=== PATIENT | female | born 1995 | race African-American/Black ===

== ENCOUNTER 2016-12-24 15:23 | Emergency (ER) | payer MEDICAID ==
[~2016-12-24] VITALS: Ht 175.3 cm; Wt 100.0 kg
[~2016-12-24 15:23] MED LIST: ETON1IMP I-DERMAL
[2016-12-24 15:24] VITALS: BP 110/63; PULSE 112; TEMP 98.8; O2SAT 97
[2016-12-24] MEDS ORDERED: LIDOCAINE 1%/EPINEPHrine 1:100,000 SOLN 20 ML VIAL INFIL ONE (15:45)
--- NOTE | 2016-12-24 15:45 | PD ---
HPI Chief Complaint: Lump, Cyst, Hernia Time Seen by Provider: 15:44 Travel History International Travel<30 days: No Contact w/Intl Traveler<30days: No Traveled to known affect area: No History of Present Illness HPI 21-year-old female presents to the emergency department complaining of an abscess in between her buttocks 2-3 days. Denies fever, vomiting. Reports nausea. Has not taken any medications or tried any treatments to be her symptoms. No known allergies. Has history of multiple abscesses. Has no medical complaints. No other modifying factors or associated signs and symptoms. PFSH Past Medical History Cancer: No Cardiovascular Problems: No Diminished Hearing: No Endocrine: No Genitourinary: No Immune Disorder: No Musculoskeletal: No Neurologic: No Psychiatric: No Reproductive: No Respiratory: No Immunizations Current: Yes ?: Not LMP: 2014 : 0 Para: 0 Miscarriage: 0 : 0 Social History Alcohol Use: No Tobacco Use: No Substance Use: No Allergies-Medications (Allergen,Severity, Reaction): Coded Allergies: No Known Allergies (Verified , 06/21/16) Reported Meds & Prescriptions Reported Meds & Active Scripts Active Ibuprofen 800 Mg Tab 800 Mg PO Q6HR PRN Keflex (Cephalexin) 500 Mg Cap 500 Mg PO Q6H 10 Days Bactrim DS (Sulfamethoxazole-Trimethoprim) 800-160 Mg Tab 1 Tab PO BID 10 Days Nexplanon Implant (Etonogestrel Implant) 68 Mg Imp 68 Mg I-DERMAL ONCE Review of Systems Except as stated in HPI: all other systems reviewed are Neg Physical Exam Narrative GENERAL: Well-nourished, well-developed female patient, in no acute distress; afebrile, nontoxic-appearing SKIN: There is an indurated area to the coccyx area which measures about 3 cm in diameter. It is fluctuant but there is no pointing or drainage. There is a zone of inflammation around it but no lymphangitis. HEAD: Atraumatic. Normocephalic. EYES: Pupils equal and round. No scleral icterus. No injection or drainage. ENT: Mucosa pink and moist. Airway patent. NECK: Trachea midline. CARDIOVASCULAR: Regular rate. RESPIRATORY: No accessory muscle use. GASTROINTESTINAL: Obese. MUSCULOSKELETAL: No obvious deformities. No clubbing. No cyanosis. No edema. NEUROLOGICAL: Awake and alert. Oriented 3. No obvious cranial nerve deficits. Motor grossly within normal limits. Normal speech. PSYCHIATRIC: Appropriate mood and affect; insight and judgment normal. Data Data Last Documented VS Vital Signs Date Time Temp Pulse Resp B/P Pulse Ox O2 Delivery O2 Flow Rate FiO2 12/24/16 15:24 98.8 112 110/63 97 Orders Lidocai-Epi 1%-1:100,000 Inj (Xylocaine- (12/24/16 15:45) Wound Culture And Gram Stain (12/24/16 15:46) Ondansetron Odt (Zofran Odt) (12/24/16 16:00) Ketorolac Inj (Toradol Inj) (12/24/16 16:00) [facility] Medical Decision Making Medical Screen Exam Complete: Yes Emergency Medical Condition: Yes Medical Record Reviewed: Yes Differential Diagnosis Pilonidal abscess, perirectal abscess, abscess of buttocks Narrative Course 21-year-old female physical exam consistent with pilonidal abscess. See my procedure note for incision and drainage. Patient is afebrile and nontoxic- appearing. She is reporting nausea without vomiting. Zofran and Toradol administered in the ER. Heart rate recheck approximately 90-100 bpm. Keflex and Bactrim prescribed for home. Instructed patient to follow up with primary care provider or return to the emergency department in 48 hours for packing removal. Patient verbalizes understanding and agreement with treatment plan. Patient is medically cleared and stable for discharge. Discussed reasons to return to the emergency department. Instructed patient to follow up with primary care provider. Patient agrees with treatment plan. The patients vital signs are stable and the patient is stable for outpatient follow-up and treatment. Patient discharged home, stable and in no acute distress. Procedures Procedure Narrative INCISION AND DRAINAGE OF ABSCESS: The area was prepped and was sterilely draped. A subcutaneous wheal of 1 % Xylocaine with a total number 2 mL was used to anesthetize the area properly. A number 11 scalpel was used to make a 1 -cm incision across the area of the abscess. The abscess was drained, complex loculations were broken down, and irrigated with normal saline. Cultures were obtained. Quarter inch iodoform packing was placed in the wound. Sterile dressing applied. Patient advised to have packing removed in two days. Diagnosis Primary Impression: Pilonidal abscess Referrals: Primary Care Physician Patient Instructions: Abscess (ED), Abscess Follow-up (ED), Abscess Incision and Drainage (ED), General Instructions Departure Forms: Tests/Procedures, Work Release Enter return to work date: Dec 27, 2016 Additional Instructions: Complete full course of antibiotics Warm compresses to the affected area Keep area clean and dry Ibuprofen or Tylenol as directed and as needed for pain and inflammation Return to the emergency department in 48 hours (Sunday12/26/2016) for abscess packing removal Follow-up with primary care provider Return to emergency department immediately with worsening of symptoms Med/Other Pt SpecificInfo: Prescription(s) given Scripts Ibuprofen 800 Mg [id number] Mg PO Q6HR PRN (PAIN) #30 TAB Ref 0 Prov:Esme Covarrubias 12/24/16 Cephalexin (Keflex)500 Mg [id number] Mg PO Q6H 10 Days Ref 0 Prov:Esme Covarrubias 12/24/16 Sulfamethoxazole-Trimethoprim (Bactrim DS)800-160 Mg Tab1 Tab PO BID 10 Days Ref 0 Prov:Esme Covarrubias 12/24/16 Disposition: 01 DISCHARGE HOME Condition: Stable Esme Covarrubias Dec 24, 2016 15:45
[2016-12-24] MEDS ORDERED: IBUP800T23 PO (15:48)
[2016-12-24] MEDS ORDERED: BACT800T5 PO (15:48)
[2016-12-24] MEDS ORDERED: CEPH-460 PO (15:48)
[2016-12-24] MEDS ORDERED: KETOROLAC TROMETHAMINE 60 MG/2 ML (IM) VIAL IM ONE (16:00)
[2016-12-24] MEDS ORDERED: ONDANSETRON ODT 4 MG TAB PO ONE (16:00)
== END 2016-12-24 16:29 | disposition home or self-care (01) ==
LOC: NEPD 15:23
DX: L05.01 Pilonidal cyst with abscess (principal); R11.0 Nausea; Z87.2 Personal history of diseases of the skin and subcutaneous tissue
CPT/HCPCS: 10061; 87070; 96372; 99284; J1885; 87205

== ENCOUNTER 2016-12-26 15:12 | Emergency (ER) | payer MEDICAID ==
[~2016-12-26] VITALS: Ht 167.6 cm; Wt 105.0 kg
[~2016-12-26 15:12] MED LIST changes: +BACT800T5 PO; +CEPH-460 PO; +IBUP800T23 PO
[2016-12-26 15:15] VITALS: BP 115/70; PULSE 96; RESP 14; TEMP 98.7; O2SAT 100
--- NOTE | 2016-12-26 16:41 | PD ---
HPI Chief Complaint: Wound/Suture/Staple Re-Check Time Seen by Provider: 16:33 Travel History International Travel<30 days: No Contact w/Intl Traveler<30days: No Traveled to known affect area: No History of Present Illness HPI 21-year-old female presents the emergency department status post I&D of pilonidal cyst 2 days prior. Packing was placed at that time. Patient is here for a wound check and packing removal. Patient has minimal pain and no fever or chills. Patient has had some ongoing purulent drainage from the area. He is currently on Keflex, and Bactrim. She has no known drug allergies. Final culture ID is pending. PFS Past Medical History Cancer: No Cardiovascular Problems: No Diminished Hearing: No Endocrine: No Genitourinary: No Immune Disorder: No Musculoskeletal: No Neurologic: No Psychiatric: No Reproductive: No Respiratory: No Immunizations Current: Yes ?: Not : 0 Para: 0 Miscarriage: 0 : 0 Social History Alcohol Use: No Tobacco Use: No Substance Use: No Allergies-Medications (Allergen,Severity, Reaction): Coded Allergies: No Known Allergies (Verified , 06/21/16) Reported Meds & Prescriptions Reported Meds & Active Scripts Active Ibuprofen 800 Mg Tab 800 Mg PO Q6HR PRN Keflex (Cephalexin) 500 Mg Cap 500 Mg PO Q6H 10 Days Bactrim DS (Sulfamethoxazole-Trimethoprim) 800-160 Mg Tab 1 Tab PO BID 10 Days Nexplanon Implant (Etonogestrel Implant) 68 Mg Imp 68 Mg I-DERMAL ONCE Review of Systems Except as stated in HPI: all other systems reviewed are Neg General / Constitutional: No: Fever Eyes: No: Visual changes HENT: No: Headaches Cardiovascular: No: Chest Pain or Discomfort Respiratory: No: Shortness of Breath Gastrointestinal: No: Abdominal Pain Genitourinary: No: Dysuria Musculoskeletal: No: Pain Skin: No Rash Neurologic: No: Weakness Psychiatric: No: Depression Endocrine: No: Polydipsia Hematologic/Lymphatic: No: Easy Bruising Physical Exam Narrative GENERAL: Patient is in mild distress. SKIN: Warm and dry. Normal color. Normal turgor. Packing is removed without difficulty. Patient has good granulation tissue at the site of incision. Further packing not felt warranted at this time. HEAD: Atraumatic. Normocephalic. EYES: Pupils equal and round. No scleral icterus. No injection or drainage. ENT: No nasal bleeding or discharge. Mucous membranes pink and moist. Pharynx is clear. NECK: Trachea midline. Supple nontender. CARDIOVASCULAR: Regular rate and rhythm. RESPIRATORY: No accessory muscle use. Clear to auscultation. Breath sounds equal bilaterally. MUSCULOSKELETAL: Extremities without clubbing, cyanosis, or edema. No obvious deformities. NEUROLOGICAL: Awake and alert. No obvious cranial nerve deficits. Motor grossly within normal limits. Five out of 5 muscle strength in the arms and legs. Normal speech. PSYCHIATRIC: Appropriate mood and affect; insight and judgment normal. Data Data Last Documented VS Vital Signs Date Time Temp Pulse Resp B/P Pulse Ox O2 Delivery O2 Flow Rate FiO2 12/26/16 15:15 98.7 96 14 115/70 100 MDM Medical Decision Making Medical Screen Exam Complete: Yes Emergency Medical Condition: Yes Medical Record Reviewed: Yes Differential Diagnosis Pilonidal cyst. I&D of abscess. Wound check and packing removal. Narrative Course Patient is medically stable at time of exam. Packing is removed without difficulty. Further packing not felt warranted at this time. Dressing is reapplied by nursing staff. Patient is to finish her antibiotics as previously prescribed and follow-up as needed. Diagnosis Primary Impression: Encounter for abscess packing removal Additional Impression: Pilonidal abscess Referrals: [facility] Patient Instructions: Abscess Incision and Drainage (ED), General Instructions Additional Instructions: Patient is medically stable at time of exam. Packing is removed without difficulty. Further packing not felt warranted at this time. Dressing is reapplied by nursing staff. Patient is to finish her antibiotics as previously prescribed and follow-up as needed. Med/Other Pt SpecificInfo: Wound Care Disposition: 01 DISCHARGE HOME Condition: Stable Jose E Blanco Dec 26, 2016 16:41
== END 2016-12-26 17:07 | disposition home or self-care (01) ==
LOC: NEPK 15:12
DX: L05.01 Pilonidal cyst with abscess (principal); Z48.89 Encounter for other specified surgical aftercare
CPT/HCPCS: 99281

== ENCOUNTER 2017-09-12 21:41 | Emergency (ER) | payer MEDICAID ==
[~2017-09-12] VITALS: Ht 175.3 cm; Wt 105.0 kg
[~2017-09-12 21:41] MED LIST changes: +IBUP1TAB7 PO; -IBUP800T23 PO
[2017-09-12 21:44] VITALS: BP 122/77; PULSE 96; RESP 18; TEMP 98.3; O2SAT 100
[2017-09-12] MEDS ORDERED: LIDOCAINE HCL 1% 50 ML VIAL INFIL ONE (22:00)
[2017-09-12] MEDS ORDERED: BACT800T5 PO (22:15)
[2017-09-12] MEDS ORDERED: IBUP-232 PO (22:15)
--- NOTE | 2017-09-12 22:15 | PD ---
HPI Chief Complaint: Skin Problem Time Seen by Provider: 22:00 Travel History International Travel<30 days: No Contact w/Intl Traveler<30days: No Traveled to known affect area: No History of Present Illness HPI 21-year-old female patient presents to the ER today because of 2 weeks history of bumps on her right axilla, states that some of her getting bigger, and fairly painful. She denies any fevers or any other issues. She states that the tenderness is spreading down to her breast. Modifying Factors: None Associated Signs & Symptoms: Axilla lump, pain Risk Factors: None PFSH Past Medical History Medical History: Denies Significant Hx Cancer: No Cardiovascular Problems: No Diminished Hearing: No Endocrine: No Genitourinary: No Immune Disorder: No Musculoskeletal: No Neurologic: No Psychiatric: No Reproductive: No Respiratory: No Immunizations Current: Yes Tetanus Vaccination: Unknown Influenza Vaccination: No ?: Not LMP: 08/16/2017 : 0 Para: 0 Miscarriage: 0 : 0 Past Surgical History Surgical History: No Previous Surgery Other Surgery: No Social History Alcohol Use: No Tobacco Use: No Substance Use: No Allergies-Medications (Allergen,Severity, Reaction): Coded Allergies: No Known Allergies (Verified , 06/21/16) Reported Meds & Prescriptions Reported Meds & Active Scripts Active Ibuprofen 600 Mg Tab 600 Mg PO Q6H PRN Bactrim DS (Sulfamethoxazole-Trimethoprim) 800-160 Mg Tab 1 Tab PO BID Ibuprofen 800 Mg Tab 800 Mg PO Q6HR PRN Keflex (Cephalexin) 500 Mg Cap 500 Mg PO Q6H 10 Days Bactrim DS (Sulfamethoxazole-Trimethoprim) 800-160 Mg Tab 1 Tab PO BID 10 Days Nexplanon Implant (Etonogestrel Implant) 68 Mg Imp 68 Mg I-DERMAL ONCE Review of Systems Except as stated in HPI: all other systems reviewed are Neg Physical Exam Narrative GENERAL: Well-developed young -[place] female patient currently in mild distress. Awake and oriented 3. SKIN: Focused skin assessment warm/dry. There is notable half centimeter nonfluctuant nodules on several areas of her axilla and at the lower part of the axilla near the right breast, there is notable 3 cm indurated area. There is a 1 cm area of fluctuance there. Fairly tender to palpation. HEAD: Atraumatic. Normocephalic. EYES: Pupils equal and round. No scleral icterus. No injection or drainage. ENT: No nasal bleeding or discharge. Mucous membranes pink and moist. NECK: Trachea midline. No JVD. CARDIOVASCULAR: Regular rate and rhythm. No murmur appreciated. RESPIRATORY: No accessory muscle use. Clear to auscultation. Breath sounds equal bilaterally. GASTROINTESTINAL: Abdomen soft, non-tender, nondistended. Hepatic and splenic margins not palpable. MUSCULOSKELETAL: No obvious deformities. No clubbing. No cyanosis. No edema. NEUROLOGICAL: Awake and alert. No obvious cranial nerve deficits. Motor grossly within normal limits. Normal speech. PSYCHIATRIC: Appropriate mood and affect; insight and judgment normal. Data Data Last Documented VS Vital Signs Date Time Temp Pulse Resp B/P (MAP) Pulse Ox O2 Delivery O2 Flow Rate FiO2 09/12/17 21:44 98.3 96 18 122/77 (92) 100 Orders Orders Lidocaine 1% Inj (50 Ml) (Xylocaine 1% I (09/12/17 22:00) Ed Discharge Order (09/12/17 22:33) [facility] Medical Decision Making Medical Screen Exam Complete: Yes Emergency Medical Condition: Yes Medical Record Reviewed: Yes Differential Diagnosis Abscesses versus cellulitis versus ingrown hair versus folliculitis Narrative Course I&D was performed on the abscess. Wound care instructions are given. Patient was given ibuprofen and Bactrim. Return for any worsening in pain, swelling, fevers, or new issues as needed. The plan has been discussed with her and she states understanding. Procedures Procedure Narrative INCISION AND DRAINAGE OF ABSCESS: The area was prepped and was sterilely draped. A subcutaneous wheal of % Xylocaine 1% with a total number 3 cc was used to anesthetize the area. The area was properly anesthetized. A number small scalpel was used to make a 1-cm incision across the area of the abscess. The abscess was drained an irrigated with normal saline. Quarter inch iodoform packing was placed in the wound. Sterile dressing applied. Patient advised to have packing removed in two days. Diagnosis Primary Impression: Abscess of axilla, right Med/Other Pt SpecificInfo: Prescription(s) given Scripts Ibuprofen (Ibuprofen) 600 Mg Tab 600 MG PO Q6H Y for Pain/Inflammation, #20 TAB 0 Refills Prov: Zarina Hallman MD 09/12/17 Sulfamethoxazole-Trimethoprim (Bactrim DS) 800-160 Mg Tab 1 TAB PO BID for Infection, #14 TAB 0 Refills Prov: Zarina Hallman MD 09/12/17 Disposition: 01 DISCHARGE HOME Condition: Stable Zarina Hallman MD Sep 12, 2017 22:15
== END 2017-09-12 23:01 | disposition home or self-care (01) ==
LOC: NEPD 21:41
DX: L02.411 Cutaneous abscess of right axilla (principal)
CPT/HCPCS: 10061